=== PATIENT | male | born 1980 | race Two or more races ===

== ENCOUNTER 2020-09-06 14:28 | Outpatient (CLI) | payer OTHER ==
[~2020-09-06 14:28] MED LIST: ETODOLAC400 MG PO; SKELAXIN800 MG PO
== END 2020-09-06 14:37 | disposition home or self-care (01) ==
LOC: MRI 14:28
PROVIDERS: ATTEND General Practice
DX: M25.562 Pain in left knee (principal)
CPT/HCPCS: 73718

== ENCOUNTER → 2020-09-15 | Outpatient (CLI) | payer OTHER | END | disposition home or self-care (01) | LOC: LAB 10:18 | PROVIDERS: ATTEND General Practice | DX: Z00.01 Encounter for general adult medical examination with abnormal findings (principal); Z68.39 Body mass index [BMI] 39.0-39.9, adult; Z11.3 Encounter for screening for infections with a predominantly sexual mode of transmission; Z11.4 Encounter for screening for human immunodeficiency virus [HIV]; Z12.5 Encounter for screening for malignant neoplasm of prostate; Z12.11 Encounter for screening for malignant neoplasm of colon ==